=== PATIENT | male | born 1955 | race Caucasian/White ===

== ENCOUNTER → 2019-01-23 | Outpatient (CLI) | payer MEDICARE, BC ==
--- NOTE | 2019-01-23 16:30 | KCIC ---
MRI of the lumbar spine without contrast 01/23/2019 CLINICAL HISTORY: Low back pain which radiates down the left leg intermittently for 30 years. TECHNIQUE: Unenhanced T1-weighted and T2-weighted sagittal and axial and inversion recovery sagittal images of the lumbar spine were obtained. FINDINGS: No previous studies are available for comparison. The patient appears to have transitional vertebral anatomy. For the purposes of this dictation 5 lumbar vertebrae have been assumed. The last reasonably well-defined lumbar-appearing disc space will be referred to as L5-S1. L5 is sacralized. Mild S-shaped curvature of the thoracolumbar spine is seen. Degenerative signal changes and loss of height are seen involving all of the disks of the lumbar spine. Degenerative signal changes are seen within the marrow surrounding these discs. The conus medullaris is within normal limits in morphology, position, and signal characteristics. At the L1-2 disc space there is a moderate generalized disc bulge. This is eccentric to the right. Degenerative changes are seen involving the facet joints bilaterally. There is mild ligamentum flavum hypertrophy bilaterally. There is prominence of the posterior epidural fat. There are are small bilateral facet joint effusions. These findings when combined result in mild to moderate central spinal canal stenosis. No neural foraminal stenosis is seen. At the L2-3 disc space there is a moderate generalized disc bulge. Degenerative changes are seen involving the facet joints bilaterally. There is moderate ligamentum flavum hypertrophy bilaterally. These findings when combined result in mild to moderate central spinal canal stenosis. No neural foraminal stenosis is seen. At the L3-4 disc space there is a moderate generalized disc bulge. Superimposed on this disc bulge is a focal central disc protrusion. This measures 3 mm in AP diameter. Degenerative changes are seen involving the facet joints, left greater than right. There is mild to moderate ligamentum flavum hypertrophy bilaterally. There is prominence of the posterior epidural fat. These findings when combined result in severe left greater than right central spinal canal stenosis. Mild to moderate left greater than right neural foraminal stenosis is seen. At the L4-5 disc space there is a moderate generalized disc bulge. This is eccentric to the left. Degenerative changes are seen involving the facet joints bilaterally. There is moderate ligamentum flavum hypertrophy, left greater than right. These findings when combined result in moderate to severe left greater than right central spinal canal stenosis. Moderate left neural foraminal stenosis is seen. The right neural foramen is patent. At the L5-S1 disc space there is a minimal generalized disc bulge. Degenerative changes are seen involving the facet joints bilaterally. These findings do not result in significant central spinal canal or neural foraminal stenosis. IMPRESSION: The changes of degenerative disc disease are seen throughout the lumbar spine. These findings result in mild to moderate central spinal canal stenosis at L1-2 and L2-3, severe left greater than right central spinal canal stenosis at L3-4 and moderate to severe left greater than right central spinal canal stenosis at L4-5. Mild to moderate left greater than right neural foraminal stenosis is seen at L3-4. Moderate left neural foraminal stenosis is seen at L4-5. Electronically signed by: Abner Das MD (01/23/2019 4:27 PM) [id number]
== END | disposition home or self-care (01) ==
LOC: KCIC MRI 12:23
PROVIDERS: ATTEND Physician Assistant Medical
DX: M51.36 Other intervertebral disc degeneration, lumbar region (principal); M48.061 Spinal stenosis, lumbar region without neurogenic claudication; M51.27 Other intervertebral disc displacement, lumbosacral region; M47.817 Spondylosis without myelopathy or radiculopathy, lumbosacral region
CPT/HCPCS: 72148